=== PATIENT | female | born 1965 | race Two or more races ===

== ENCOUNTER 2021-10-30 13:51 | Outpatient (CLI) | payer OTHER | END 2021-10-30 13:57 | disposition home or self-care (01) | LOC: RAD 13:51 | PROVIDERS: ATTEND Internal Medicine | DX: I11.9 Hypertensive heart disease without heart failure (principal) ==

== ENCOUNTER 2021-12-04 08:56 | Outpatient (CLI) | payer OTHER | END 2021-12-04 09:03 | disposition home or self-care (01) | LOC: MAMO-SONO 08:56 | DX: Z12.31 Encounter for screening mammogram for malignant neoplasm of breast (principal); N63.0 Unspecified lump in unspecified breast ==

== ENCOUNTER → 2021-12-18 | Outpatient (CLI) | payer OTHER | END | disposition home or self-care (01) | LOC: SONOGRAMA 09:45 | DX: Z12.31 Encounter for screening mammogram for malignant neoplasm of breast (principal); N63.0 Unspecified lump in unspecified breast ==